=== PATIENT | female | born 1975 | race African-American/Black ===

== ENCOUNTER 2023-12-15 19:27 | Emergency (ER) | payer BC, SELFPAY ==
[2023-12-15 19:32] VITALS: BP 131/91
--- NOTE | 2023-12-16 00:28 | ED.GENMED ---
History of Present Illness
<HOSSEIN Faye - Last Filed: 12/16/23 00:45>
General
Chief Complaint: Breast Problem
Source: patient
Exam Limitations: none
Time Seen by Provider: 12/16/23 00:08
Nursing documentation reviewed up to this point in time: agreed with
Travel History
Have you had any contact with someone who has COVID-19?: No
Do you have any symptoms of coronavirus? Fever > 100 degrees, chills, cough, shortness of breath, sore throat, loss of taste or smell, muscle aches, or headache?: No
History of Present Illness
History of Present Illness:
Pt is a 48 year old female with a PMH of asthma, HTN, and prediabetes, who presents to the ED with her c/o right sided breast pain x 1 day. Pt states the pain started last night when she got out of the shower. She felt her breast and noticed
a chain of lumps leading into her armpit. She notes the pain is constant and feels as though the vein near the lump is pulsing. The pain is rated a 3/10 in severity. Pt took tylenol at 4:30pm which has helped slightly. Her also noticed
redness around the area yesterday. She denies any fever, chills, CP, lightheadedness, dizziness, n/v/d/c, abdominal pain, leg swelling, leg pain, or any itching around her breasts. Pt has never had symptoms like this before.
She has a family hx of DM, HTN, asthma, and lupus. She denies any family history of CAD or breast cancer. Pt cannot remember the date of her last mammogram. She denies any drug or tobacco use, she drinks alcohol occasionally.
Past History
<HOSSEIN Faye - Last Filed: 12/16/23 00:45>
Past History
ED Past Medical History: HTN and Other ('constipation issues' Migraines, Ovarian cyst)
ED Past Surgical History: Appendectomy and Gynecological (ovarian cyst)
Patient has exhibited threatening behavior?: No
Social History
Tobacco: Non-smoker
Alcohol: Occasional
Drug: None
Personal:
Living: with family
Employment: Employed
Family History
Family History: Diabetes, CAD and Other (lupus)
Review of Systems
<HOSSEIN Faye - Last Filed: 12/16/23 00:45>
Review of Systems
Allergies reviewed?: Yes
Other source history: family
Constitutional: Reports no symptoms; Denies fever or chills
Respiratory: Reports cough (asthma related); Denies trouble breathing
Cardiac: Reports no symptoms; Denies chest pain or diaphoresis
ABD/GI: Reports no symptoms; Denies abdominal pain, nausea, vomiting, diarrhea or constipated
: Reports no symptoms
Musculoskeletal: Reports no symptoms; Denies muscle pain
Neurological: Reports no symptoms; Denies dizzy
Phy Exam
<HOSSEIN Faye - Last Filed: 12/16/23 00:45>
General Physical Exam
General Presentation: well appearing and no apparent distress
General age: appears stated age
General Skin: warm and dry
General Habitus: normal
General Mental: alert
General Hydration: appears well hydrated
Cardiovascular Exam
Cardiovascular Exam: regular rate/rhythm, no edema, no gallop, no murmur and normal peripheral pulses
Heart Sounds: normal
Pulmonary Exam
Pulmonary Exam: lungs clear, no respiratory distress, no rales, no rhonchi and no cough
Oxygen Status: room air
Gastrointestinal Exam
Gastrointestinal Exam: normal bowel sounds, non tender, soft and non distended
Neurological Exam
Neurological Exam: alert and oriented x3
Musculoskeletal Exam
Musculoskeletal Exam: no edema
Skin Exam
Skin Exam: erythema (R breast, 10 o clock position), tenderness (right breast, 10 o clock position) and other (palpable chain of lumps that lead into right axilla)
Psychiatric Exam
Psychiatric Exam: normal mood/affect
Course
<HOSSEIN Faye - Last Filed: 12/16/23 00:45>
Orders/Labs/Results
Orders:
Orders
12/16/23 00:53
Doxycycline [Vibramycin] 100 mg PO NOW STA
Vital Signs
Initial and Last Documented VS:
Initial Vital Signs
Temp Pulse Resp BP Pulse Ox
98.3 F 70 20 131/ 96
12/15/23 19:32 12/15/23 19:32 12/15/23 19:32 12/15/23 19:32 12/15/23 19:32
Last Documented Vital Signs
Temp Pulse Resp BP Pulse Ox
98.3 F 61 18 131 97
12/15/23 19:32 12/16/23 00:43 12/16/23 00:43 12/15/23 19:32 12/16/23 00:43
<Ritu Reese DO - Last Filed: 12/16/23 01:09>
Orders/Labs/Results
Orders:
Orders
12/16/23 00:53
Doxycycline [Vibramycin] 100 mg PO NOW STA
Vital Signs
Initial and Last Documented VS:
Initial Vital Signs
Temp Pulse Resp BP Pulse Ox
98.3 F 70 20 131/ 96
12/15/23 19:32 12/15/23 19:32 12/15/23 19:32 12/15/23 19:32 12/15/23 19:32
Last Documented Vital Signs
Temp Pulse Resp BP Pulse Ox
98.3 F 61 18 131/ 97
12/15/23 19:32 12/16/23 00:43 12/16/23 00:43 12/15/23 19:32 12/16/23 00:43
<Ritu Reese DO - Last Filed: 12/16/23 01:09>
*Pulse Oximetry
Patient hypoxic: no
*Critical Care Note
Total Time (30-74mins, 75-104mins- exclusive of procedures): Not Applicable
ED Attending Note
<HOSSEIN Faye - Last Filed: 12/16/23 00:45>
-
Portions of this chart may have been created with voice recognition software.� Occasional wrong word or��sound alike� substitutions may have occurred due to the inherent limitations of voice recognition software.
<Ritu Reese DO - Last Filed: 12/16/23 01:09>
ED Attending Note
Patient seen and examined by attending physician: Yes
I performed the substantive portion of visit, reviewed & personally made and approve the management plan that is documented in note by myself or BRADEN.: Yes
I performed a history and physical exam of patient and discussed management with resident, I reviewed resident's note and agree with documented findings and plan of care.: Yes
ED Attending Note:
This is a 48-year-old woman who complains of 24-hour history of right lateral breast pain, redness and palpable linear nodules along with red streak right lateral breast.
No insightful injury. She has not had a fever nor chills. No nipple discharge. No history of similar episodes in the past.
She does have history of prediabetes and was started on Mounjaro 1 week ago. Thus far tolerating well but she did notice mild tingling sensation suprapubic area that initially she thought was related to Mounjaro but then noticed tingling is only
noted when urinating and thus was started on Bactrim 2 days ago for UTI. Tingling sensation has since improved.
She denies risk of , last menstrual period November 22, 2023.
She is due for mammogram, last performed February 2022 requiring spot views and ultrasound showing fibrocystic changes and simple appearing cyst right medial breast with recommendations for follow-up routine mammogram in 1 years time which was due
February 2023.
No personal history of breast cancer nor family history of such.
48-year-old woman appears her stated age, bright and alert, pleasant, appears in no acute distress. Afebrile. is accompanying.
HEENT: Oral mucosa is moist.
Neck is supple, nontender, no adenopathy.
Heart is regular rate and rhythm.
Lungs are clear to auscultation, respirations are easy nonlabored.
Right breast has a linear streak of erythema lateral aspect with palpable firm nodularity along the streak that is mildly tender to palpation. There is minimal right axillary adenopathy. No palpable abscess nor fluctuance. There is no nipple
discharge.
Abdomen is soft and nontender.
Extremities without clubbing or cyanosis nor edema. Peripheral pulses are full and equal.
No focal neurodeficits.
Patient presents with 24-hour history of focal right breast erythema with palpable nodularity and mild right axillary adenopathy consistent with focal ductal infection/inflammation/focal mastitis.
Overall nontoxic in appearance, afebrile.
No history of similar episodes in the past.
She does have history of prediabetes thus potentially at increased risk for infection.
As patient is well in appearance, reports no fever, no indication for laboratory studies.
No indication for radiologic studies but would recommend follow-up mammogram.
Other consideration is inflammatory intraductal carcinoma.
Patient began Bactrim 2 days ago for treatment of UTI. UTI symptoms appear to have improved but right breast erythema has worsened over the past 24 hours thus would recommend we broaden antibiotic with a course of doxycycline twice daily for 10
days.
Recommend local warm compresses.
Continue Tylenol as needed for pain.
Recommend prompt follow-up with PCP next week for recheck.
Patient is overdue for mammogram and recommend retry to clear local infection first and then follow-up with mammogram, potentially diagnostic mammogram.
Return precautions discussed.
Discharge Plan
Departure
Patient Disposition: Home (Routine Discharge)
Date of Disposition: 12/16/23
Time of Disposition: 00:55
Patient with high blood pressure during this ER visit?: No
Condition: Good
Discharge Problem:
Acute mastitis of right breast
Instructions: Mastitis (DC)
Prescriptions:
New
doxycycline monohydrate 100 mg capsule
100 mg PO BID Qty: 20 1RF
fluconazole 150 mg tablet
150 mg PO DAILY Qty: 1 1RF
No Action
amlodipine 5 mg Tablet
5 mg PO DAILY
hydrochlorothiazide 12.5 mg Tablet
12.5 mg PO DAILY
B12 500 mg tablet
1 - 2 tab PO DAILY
trazodone 50 mg Tablet
50 mg PO HS
ferrous sulfate [iron] 325 mg (65 mg iron) Tablet
325 mg PO DAILY
docusate sodium [Colace] 100 mg Capsule
100 mg PO DAILY
ascorbic acid (vitamin C) [Vitamin C] 500 mg Tablet
500 - 1,000 mg PO DAILY
magnesium 200 mg Tablet
400 mg PO DAILY
cholecalciferol (vitamin D3) [Vitamin D3] 25 mcg (1,000 unit) Tablet
25 mcg PO DAILY
Super Enzyme [phone] mg Capsule
2 cap PO DAILY
Referrals:
Gumaro Wilson MD [Family Provider] - Call in 1-3 days for appt
Stand Alone Forms: Return to Work
Activity Restrictions/Additional Instructions:
Finish her course of Bactrim for UTI.
I have added a 10-day course of doxycycline for right breast infection.
Apply warm compresses to right lateral breast, 10 to 15 minutes, 4 times daily.
I want you to follow-up with your primary care physician next week for recheck.
You are due for a mammogram, if pain persists would recommend diagnostic mammogram.
Interventions
Interventions:
*Risk Screen - Suicide Last Done: 02/07/24 19:32
*General Assessment Last Done: 12/15/23 19:32
*Neglect/Abuse Screening Last Done: 12/15/23 19:32
[2023-12-16] MEDS: VIBRAMYCIN 100 MG PO (01:07)
== END 2023-12-16 01:37 | disposition home or self-care (01) ==
LOC: EMR 19:27
PROVIDERS: EMERGENCY PHYSICIAN Emergency Medicine; FAMILY PHYSICIAN Family Medicine
DX: N61.0 Mastitis without abscess (principal); I10 Essential (primary) hypertension; J45.909 Unspecified asthma, uncomplicated; Z82.49 Family history of ischemic heart disease and other diseases of the circulatory system; Z83.3 Family history of diabetes mellitus
CPT/HCPCS: 99283

== ENCOUNTER → 2023-12-24 10:44 | Outpatient (REF) | payer BC, SELFPAY | LOC: WDC 10:44 | PROVIDERS: ATTENDING PHYSICIAN Family Medicine | DX: N61.0 Mastitis without abscess (principal) | CPT/HCPCS: 76642; 77062; 77066 ==

== ENCOUNTER → 2025-04-06 12:33 | Outpatient (REF) | payer BC, SELFPAY | LOC: HWWDC 12:33 | PROVIDERS: ATTENDING PHYSICIAN Obstetrics & Gynecology Gynecology; FAMILY PHYSICIAN Student in an Organized Health Care Education/Training Program | DX: Z12.39 Encounter for other screening for malignant neoplasm of breast (principal) | CPT/HCPCS: 77063; 77067 ==

== ENCOUNTER → 2025-11-02 12:58 | Outpatient (REF) | payer BC, SELFPAY | LOC: HWRAD 12:58 | PROVIDERS: ATTENDING PHYSICIAN Student in an Organized Health Care Education/Training Program | DX: J18.9 Pneumonia, unspecified organism (principal); J45.909 Unspecified asthma, uncomplicated; J06.9 Acute upper respiratory infection, unspecified; S33.5XXA Sprain of ligaments of lumbar spine, initial encounter | CPT/HCPCS: 71046; 72110 ==